=== PATIENT | female | born 1960 | race Caucasian/White ===

== ENCOUNTER 2017-10-22 11:37 | Emergency (ER) | payer BC, OTHER ==
[~2017-10-22] VITALS: Ht 162.6 cm; Wt 102.2 kg
[~2017-10-22 11:37] MED LIST: AFLURIA IM; ASCORBIC ACID500 M3 PO; CYANOCOBALAM1000 MCG PO; DAILY VITE1 EAC1 PO; FLONASE16 G1 BOTH NARES; HYDROCHLOROTHIA25 MG PO; LEVOTHYROXINE150 MCG PO; PRAVASTATIN SOD40 MG PO; SERTRALINE HCL100 MG PO; SYNTHROID150 MCG PO; ULTRACET1 TABLET PO; VENTOLIN HFA18 GM IH; ZOCOR10 MG PO; ZOLOFT20 MG/ML PO
[2017-10-22 15:40] LABS: TROP-I INTERPRETATION NEGATIVE; TROPONIN-I < 0.01 ng/mL (0.0-0.30)
[2017-10-22] MEDS ORDERED: MOTRIN800 MG PO (15:48)
[2017-10-22] MEDS ORDERED: FLEXERIL10 MG PO (15:48)
[2017-10-22 16:00] VITALS: BP 145/61
== END 2017-10-22 16:29 | disposition home or self-care (01) ==
LOC: EME 11:37
PROVIDERS: Nurse Practitioner Family
DX: S46.911A Strain of unspecified muscle, fascia and tendon at shoulder and upper arm level, right arm, initial encounter (principal); M62.838 Other muscle spasm; I10 Essential (primary) hypertension; E78.5 Hyperlipidemia, unspecified; E03.9 Hypothyroidism, unspecified; J45.909 Unspecified asthma, uncomplicated; F41.9 Anxiety disorder, unspecified; F32.9 Major depressive disorder, single episode, unspecified; Z90.49 Acquired absence of other specified parts of digestive tract; Z72.0 Tobacco use; Z88.0 Allergy status to penicillin
CPT/HCPCS: 73030; 84484; 93005; 99281; 99284